=== PATIENT | male | born 1990 | race Caucasian/White ===

== ENCOUNTER 2020-06-03 11:28 | Emergency (ER) | payer SELFPAY ==
[~2020-06-03] VITALS: Ht 190.5 cm; Wt 97.5 kg
[2020-06-03 11:46] VITALS: BP 106/62
[2020-06-03 12:30] VITALS: BP 106/62
== END 2020-06-03 12:31 | disposition home or self-care (01) ==
LOC: MED 11:28
DX: G47.00 Insomnia, unspecified (principal); F31.9 Bipolar disorder, unspecified; F15.10 Other stimulant abuse, uncomplicated; F17.210 Nicotine dependence, cigarettes, uncomplicated
CPT/HCPCS: 99283